=== PATIENT | female | born 1955 | race African-American/Black ===

== ENCOUNTER 2016-07-10 00:03 | Emergency (ER) | payer OTHER ==
[~2016-07-10] VITALS: Ht 167.6 cm; Wt 70.9 kg
[~2016-07-10 00:03] MED LIST: B-121000 MCG PO; CALCIUM CITRATE1 TA5 PO; DIFLUCAN 100MG100 MG PO; GLUCOPHAGE1000 MG PO; GLUCOTROL 5M5 MG/TAB PO; HCTZ 25MG TAB25 MG PO; LEVAQUIN 750MG750 M1 PO; MICARDIS20 MG PO; NORCO 325 MG-51 TAB PO; NORVASC 5MG5 MG/TAB PO; PREDNISONE20 MG PO; PRILOSEC 20MG20 MG PO; PROAIR HFA0.09 MG/AC IH; REFRESH PLUS1 SOL OP; RT ADVAIR 228 DISKUS IH; RT SPIRIVA18 MCG IH; THEO-24 20200 MG/CAP PO; THEO-24 30300 MG/CAP PO; THEO-DUR 2200 MG/TAB PO
[2016-07-10 00:10] VITALS: TEMP 98.2
[2016-07-10] MEDS ORDERED: NORCO 325 MG-51 TAB PO (01:47)
[2016-07-10 01:51] VITALS: BP 166/86; PULSE 85
== END 2016-07-10 01:55 | disposition home or self-care (01) ==
LOC: COL.ER 00:03
DX: M25.561 Pain in right knee (principal); M25.461 Effusion, right knee; E11.9 Type 2 diabetes mellitus without complications; Z79.4 Long term (current) use of insulin; I10 Essential (primary) hypertension; F17.210 Nicotine dependence, cigarettes, uncomplicated
CPT/HCPCS: J1885

== ENCOUNTER 2016-12-17 08:27 | Day surgery (SDC) | payer OTHER ==
[~2016-12-17] VITALS: Ht 167.6 cm; Wt 71.5 kg
[2016-12-17] MEDS ORDERED: REFRESH PLUS 00.4 M1 OP (09:22)
[2016-12-17] MEDS ORDERED: MICARDIS HCT 251 TAB PO (09:26)
[2016-12-17] MEDS ORDERED: GLUCOTROL 5M5 MG/TAB PO (09:26)
[2016-12-17 09:28] VITALS: BP 127/81; PULSE 76; TEMP 98.3
[2016-12-17 11:15] VITALS: BP 119/78; PULSE 70; TEMP 97.9
[2016-12-17 11:30] VITALS: BP 117/79; PULSE 66
[2016-12-17 11:45] VITALS: BP 133/82; PULSE 68
== END 2016-12-17 12:00 | disposition home or self-care (01) ==
LOC: SDCO 08:27
DX: Z12.11 Encounter for screening for malignant neoplasm of colon (principal); D12.5 Benign neoplasm of sigmoid colon; Z86.010 Personal history of colon polyps
CPT/HCPCS: J2250; J2405; J3010; J7030

== ENCOUNTER 2018-08-15 06:52 | Day surgery (SDC) | payer OTHER ==
[~2018-08-15] VITALS: Ht 167.6 cm; Wt 51.8 kg
[~2018-08-15 06:52] MED LIST changes: +GLUCAGON EMERGEN1 M1 SQ; +MICARDIS HCT 251 TAB PO; +NORVASC 10MG10 MG PO; -NORVASC 5MG5 MG/TAB PO; +REFRESH PLUS 00.4 M1 OU; -THEO-24 20200 MG/CAP PO
[2018-08-15] MEDS ORDERED: TYLENOL 325MG325 MG PO (07:27)
[2018-08-15] MEDS ORDERED: TENORMIN 5050 MG/TAB PO (07:27)
[2018-08-15] MEDS ORDERED: DICLOZOR1 EACH TP (07:30)
[2018-08-15] MEDS ORDERED: NOVOLOG FLEX100 U/ML SQ (07:32)
[2018-08-15] MEDS ORDERED: LANTUS SOLOS100 U/ML SQ (07:33)
[2018-08-15] MEDS ORDERED: [UNRECOGNIZED DRUG - OTHER] TP (07:37)
[2018-08-15] MEDS ORDERED: ROXICODONE 55 MG/TAB PO (07:38)
[2018-08-15] MEDS ORDERED: TAPAZOLE10 MG PO (07:38)
[2018-08-15] MEDS ORDERED: MIRALAX PA17 GM/Dose PO (07:40)
[2018-08-15 07:56] VITALS: BP 135/74; PULSE 78; TEMP 97.2
[2018-08-15 09:36] VITALS: BP 125/58; PULSE 70; TEMP 97.4
--- NOTE | 2018-08-15 09:36 | NUR ---
Patient arrives back to [facility] alert, denies pain or nausea. Patient monitor applied, vital stable. Patient given muffin and soda. Patient's son at bedside.
[2018-08-15 09:45] VITALS: BP 140/68; PULSE 74
--- NOTE | 2018-08-15 09:50 | NUR ---
Patient tolerates muffin and soda without any nausea. Denies pain.
[2018-08-15 10:00] VITALS: BP 137/80; PULSE 80
--- NOTE | 2018-08-15 10:00 | NUR ---
Patient up to restroom at this time and is able to urinate without any difficulties. Reports incisions sore, reports she will take one of her pain medications pills when she gets home.
--- NOTE | 2018-08-15 10:10 | NUR ---
Dismissal instructions gone over with patient and patient's son, both verbalize understanding and all questions ansewred.
--- NOTE | 2018-08-15 10:15 | NUR ---
Patient dismissed to home. Patient leaves thanking staff for services.
== END 2018-08-15 10:15 | disposition home or self-care (01) ==
LOC: SDCO 06:52
DX: C25.2 Malignant neoplasm of tail of pancreas (principal); K86.81 Exocrine pancreatic insufficiency; C77.2 Secondary and unspecified malignant neoplasm of intra-abdominal lymph nodes; E11.9 Type 2 diabetes mellitus without complications; Z79.4 Long term (current) use of insulin; J44.9 Chronic obstructive pulmonary disease, unspecified; I10 Essential (primary) hypertension; E06.9 Thyroiditis, unspecified; M10.9 Gout, unspecified; Z87.891 Personal history of nicotine dependence; Z90.81 Acquired absence of spleen; Z90.710 Acquired absence of both cervix and uterus; Z90.411 Acquired partial absence of pancreas; Z87.11 Personal history of peptic ulcer disease; Z80.0 Family history of malignant neoplasm of digestive organs; Z82.3 Family history of stroke; Z87.01 Personal history of pneumonia (recurrent)
CPT/HCPCS: C1788; J1644; J2405; J2704; J3010; J7030